=== PATIENT | female | born 1995 | race Caucasian/White ===

== ENCOUNTER 2020-11-09 19:55 | Emergency (ER) | payer OTHER ==
[~2020-11-09] VITALS: Ht 165.1 cm; Wt 122.7 kg
[2020-11-09 20:09] VITALS: BP 174/81
--- NOTE | 2020-11-09 20:21 | PHYS DOC ---
Past History Past Medical History: No Pertinent History Past Surgical History: Tonsillectomy Alcohol Use: None Adult General Chief Complaint Chief Complaint: ANKLE PROBLEM [facility] HPI Patient is a 25 year old female patient who presents with left ankle pain and swelling. Patient states she been going down some steps today when she rolled her left foot, inverting her foot, and has had pain since this time. Reports episode occurred at 1400 today. States she has had a previous injury to the same ankle approximate 7 years ago with hairline fracture that time, which required no treatment. States she was concerned today because of the discomfort and wanted to make sure she did not have another fracture. She states she has not taken any medication for discomfort, and does not want any at this time. However she has been using her crutches Review of Systems Review of Systems Constitutional: Denies fever or chills [] Respiratory: Denies cough or shortness of breath [] Cardiovascular: No additional information not addressed in HPI [] GI: Denies abdominal pain, nausea, vomiting, bloody stools or diarrhea [] : Denies dysuria or hematuria [] Musculoskeletal: Denies back pain or joint pain [] complains of pain to left ankle, laterally with swelling Integument: Denies rash or skin lesions [] denies erythema Neurologic: Denies headache, focal weakness or sensory changes [] denies loss of sensation or paresthesia Endocrine: Denies polyuria or polydipsia [] All other systems were reviewed and found to be within normal limits, except as documented in this note. Allergies Allergies Allergies Coded Allergies Type Severity Reaction Last Updated Verified petrolatum,white Allergy Unknown 11/09/20 Yes Physical Exam Physical Exam Constitutional: Well developed, well nourished, no acute distress, non-toxic appearance. [] Cardiovascular:Heart rate regular rhythm, no murmur [] Lungs & Thorax: Bilateral breath sounds clear to auscultation [] Abdomen: Bowel sounds normal, soft, no tenderness, no masses, no pulsatile masses. [] Skin: Warm, dry, no erythema, no rash. [] Back: No tenderness, no CVA tenderness. [] Extremities: No tenderness, no cyanosis, no clubbing, ROM intact, no edema. Left ankle with moderate swelling, tenderness noted around lateral malleolus. No discomfort noted medially. No discomfort to foot, metatarsals, or heel. Full range of motion of toes, full range of motion at knee. No discomfort in knee, no discomfort at phalanges. [] Neurologic: Alert and oriented X 3, normal motor function, normal sensory function, no focal deficits noted. [] Psychologic: Affect normal, judgement normal, mood normal. [] Current Patient Data Vital Signs Vital Signs Date Time Temp Pulse Resp B/P (MAP) Pulse Ox O2 Delivery O2 Flow Rate FiO2 11/09/20 20:09 97.8 116 16 174/81 (112) 98 Room Air EKG EKG [] Radiology/Procedures Radiology/Procedures wet read no acute fracture. [] PROCEDURE: ANKLE LEFT 3V Exam: Left ankle 3 views INDICATION: Swelling, pain TECHNIQUE: Frontal, lateral and oblique views of the left ankle Comparisons: None FINDINGS: Bone mineralization is normal. No acute or healed fractures. Soft tissues are unremarkable. Joint spaces are well-maintained. IMPRESSION: No acute osseous abnormality. Electronically signed by: Hao Briones MD (11/09/2020 9:02 PM) [facility] DICTATED AND SIGNED BY: HAO BRIONES MD DATE: 11/09/20 2100 Heart Score Risk Factors: Risk Factors: DM, Current or recent (<one month) smoker, HTN, HLP, family h istory of CAD, obesity. Risk Scores: Risk Factors: DM, Current or recent (<one month) smoker, HTN, HLP, family history of CAD, obesity. Course & Med Decision Making Course & Med Decision Making Pertinent Labs and Imaging studies reviewed. (See chart for details) [] Dragon Disclaimer Dragon Disclaimer This electronic medical record was generated, in whole or in part, using a voice recognition dictation system. Departure Departure: Impression: Primary Impression: Sprain of left ankle Disposition: 01 DC HOME SELF CARE/HOMELESS Condition: GOOD Referrals: PCP,UNKNOWN (PCP) Patient Instructions: Ankle Sprain Additional Instructions: As discussed, keep using your crutches to keep weight off your ankle. Wear the splint for the next 7-10 days to help stabilize your ankle, unless Orthopedics advises you differently. You my want to consider following up with Orthopedics if you continue to have discomfort Ice, Ibuprofen or Tylenol, elevate your leg. Problem Qualifiers Primary Impression: Sprain of left ankle Encounter type: initial encounter Involved ligament of ankle: unspecified ligament Qualified Codes: S93.402A - Sprain of unspecified ligament of left ankle, initial encounter MARCI NAYLOR [employer] Nov 09, 2020 20:21
--- NOTE | 2020-11-09 21:04 | RAD ---
Exam: Left ankle 3 views INDICATION: Swelling, pain TECHNIQUE: Frontal, lateral and oblique views of the left ankle Comparisons: None FINDINGS: Bone mineralization is normal. No acute or healed fractures. Soft tissues are unremarkable. Joint spa lisseth are well-maintained. IMPRESSION: No acute osseous abnormality. Electronically signed by: Lazaro Sanches MD (11/09/2020 9:02 PM) [facility]
== END 2020-11-09 21:02 | disposition home or self-care (01) ==
LOC: ER 19:55
DX: S93.492A Sprain of other ligament of left ankle, initial encounter (principal); R60.0 Localized edema; Z88.8 Allergy status to other drugs, medicaments and biological substances; Z90.89 Acquired absence of other organs; X58.XXXA Exposure to other specified factors, initial encounter; Y93.89 Activity, other specified; Y92.89 Other specified places as the place of occurrence of the external cause; Y99.8 Other external cause status
CPT/HCPCS: 73610; 99283